=== PATIENT | female | born 1930 | race Caucasian/White ===

== ENCOUNTER 2018-02-18 18:25 | Emergency (ER) | payer MEDICARE, MEDICAID ==
[~2018-02-18] VITALS: Ht 152.4 cm; Wt 50.0 kg
[2018-02-18 19:02] LABS: BASOPHILS # (AUTO) 0.2 X10'3 (0-0.2); EOSINOPHILS # (AUTO) 0.1 X10'3 (0-0.9); EOSINOPHILS % (AUTO) 0.8 % (0-6); HEMATOCRIT 38.5 % (35.0-45.0); HEMOGLOBIN 13.1 g/dl (12.0-16.0); LYMPHOCYTES # (AUTO) 1.3 X10'3 (1.1-4.8); LYMPHOCYTES % (AUTO) 8.1 % (21-51); MEAN CORPUSCULAR HEMOGLOBIN 27.8 PG (27.0-31.0); MEAN CORPUSCULAR HGB CONC 34.1 % (33.0-36.5); MEAN CORPUSCULAR VOLUME 81.6 FL (78-98); MEAN PLATELET VOLUME 9.1 FL (7.4-10.4); MONOCYTES # (AUTO) 0.7 X10'3 (0-0.9); NEUTROPHILS # (AUTO) 14.1 X10'3 (1.8-7.7); NEUTROPHILS % (AUTO) 86.1 % (42-75); PLATELET COUNT 383 X10'3 (140-440); RED BLOOD COUNT 4.72 X10'6 (4.20-5.60); RED CELL DISTRIBUTION WIDTH 13.2 % (11.5-14.5); WHITE BLOOD COUNT 16.3 X10'3 (4.5-11.0)
[2018-02-18 19:06] LABS: CLARITY,URINE SLIGHTLY CLOUDY (Clear); COLOR,URINE YELLOW (Yellow); GLUCOSE, URINE 250 mg/dl (Neg); KETONES,URINE NEGATIVE (Neg); LEUKOCYTE ESTERASE ,URINE NEGATIVE (Neg); NITRITES, URINE NEGATIVE (Neg); OCCULT BLOOD,URINE TRACE-INTACT (Neg); PROTEIN,URINE 30 mg/dl (Neg); UROBILINOGEN,URINE 0.2 E.U/dL (0.2-1.0)
[2018-02-18 19:12] LABS: INR 0.9 INR; PROTHROMBIN TIME 9.8 SECONDS (9.0-12.0)
[2018-02-18 19:20] LABS: ALANINE AMINOTRANSFERASE 24 U/L (12-78); ALBUMIN 3.9 G/DL (3.4-5.0); ALBUMIN/GLOBULIN RATIO 1.1 (1.1-1.5); ALKALINE PHOSPHATASE 98 IU/L (46-116); ANION GAP 12 (8-16); ASPARTATE AMINO TRANSFERASE 25 U/L (10-37); BILIRUBIN,TOTAL 0.8 MG/DL (0.1-1.0); BLOOD UREA NITROGEN 26 MG/DL (7-18); BUN/CREATININE RATIO 31.7 (6.6-38.0); CALCIUM 8.8 MG/DL (8.5-10.1); CHLORIDE 82 MMOL/L (99-107); CREATINE KINASE 163 U/L (26-192); CREATININE 0.82 MG/DL (0.40-0.90); GLUCOSE 227 MG/DL (70-104); MAGNESIUM 1.6 MG/DL (1.5-2.4); POTASSIUM 4.7 MMOL/L (3.5-5.1); TOTAL CARBON DIOXIDE 21.8 MMOL/L (24-32); TOTAL PROTEIN 7.4 G/DL (6.4-8.2); eGFR 66 ML/MIN
[2018-02-18 19:21] LABS: RBC,URINE NONE SEEN /HPF (0-2); UA COLLECTION TYPE OTHER; WBC,URINE NONE SEEN /HPF (0-4)
[2018-02-18 19:22] LABS: SODIUM 116 MMOL/L (135-145)
[2018-02-18 19:22] LABS: AMORPHOUS URATES 2+; BACTERIA,URINE NONE SEEN /HPF (Neg); SQUAMOUS EPITHELIAL CELL,UR NONE SEEN /LPF (FEW)
[2018-02-18] MEDS ORDERED: normal saline 1000ML IV soln IVB ONE (19:30)
[2018-02-18] MEDS ORDERED: ondansetron/PF 4mg/2ml inj IV ONE (19:35)
[2018-02-18] MEDS ORDERED: morphine 2 MG/ML inj. syringe IV ONE (19:35)
[2018-02-18] MEDS ORDERED: iohexol 300mg/ml 100ml inj. ONE (19:49)
[2018-02-18] MEDS ORDERED: morphine 4 MG/ML inj SYRINge IV ONE (19:50)
[2018-02-18] MEDS ORDERED: METO25TA6 PO (20:01)
[2018-02-18] MEDS ORDERED: BRIM10DR2 EACHEYE (20:01)
[2018-02-18] MEDS ORDERED: GABA-530 PO (20:01)
[2018-02-18] MEDS ORDERED: ATOR40TA PO (20:01)
[2018-02-18] MEDS ORDERED: BIMA5DRO4 EACHEYE (20:01)
[2018-02-18] MEDS ORDERED: METF1000 PO (20:01)
[2018-02-18] MEDS ORDERED: LISI-600 PO (20:01)
[2018-02-18] MEDS ORDERED: AMLO10TA13 PO (20:01)
[2018-02-18] MEDS ORDERED: ASPI81TA52 PO (20:02)
[2018-02-18 21:39] VITALS: BP 145/61
== END 2018-02-18 21:51 | disposition short-term general hospital (02) ==
LOC: ER 18:26
DX: S02.412A LeFort II fracture, initial encounter for closed fracture (principal); E87.1 Hypo-osmolality and hyponatremia; F03.90 Unspecified dementia, unspecified severity, without behavioral disturbance, psychotic disturbance, mood disturbance, and anxiety; Z88.5 Allergy status to narcotic agent; Z88.6 Allergy status to analgesic agent; Z88.8 Allergy status to other drugs, medicaments and biological substances; Z79.84 Long term (current) use of oral hypoglycemic drugs; Z79.899 Other long term (current) drug therapy; W19.XXXA Unspecified fall, initial encounter; Y93.89 Activity, other specified; Y99.8 Other external cause status; Y92.89 Other specified places as the place of occurrence of the external cause
CPT/HCPCS: 36415; 70450; 70486; 71045; 71250; 72125; 80053; 81001; 82550; 83735; 84484; 85025; 85610; 93005; 96361; 96374; 96375; 99291; J2270; J2405; J7030; Q9967